=== PATIENT | female | born 1965 | race Hispanic/Latino ===

== ENCOUNTER 2023-03-21 21:55 | Emergency (ER) | payer OTHER, BC ==
[~2023-03-21] VITALS: Ht 152.4 cm; Wt 72.6 kg
[2023-03-21 22:14] VITALS: BP 146/74; PULSE 88; RESP 20
[2023-03-22] MEDS ORDERED: IBUP-2070 PO (00:18)
[2023-03-22] MEDS ORDERED: CYCL10TA16 PO (00:18)
[2023-03-22] MEDS ORDERED: CYCLOBENZAPRINE HCL 10 MG TABLET PO ONE (00:30)
[2023-03-22] MEDS ORDERED: IBUPROFEN 600 MG TABLET PO ONE (00:30)
== END 2023-03-22 01:34 | disposition home or self-care (01) ==
LOC: EDH 21:55
DX: S46.911A Strain of unspecified muscle, fascia and tendon at shoulder and upper arm level, right arm, initial encounter (principal); S29.012A Strain of muscle and tendon of back wall of thorax, initial encounter; E11.9 Type 2 diabetes mellitus without complications; I10 Essential (primary) hypertension; V89.2XXA Person injured in unspecified motor-vehicle accident, traffic, initial encounter; Y93.89 Activity, other specified; Y92.89 Other specified places as the place of occurrence of the external cause; Y99.8 Other external cause status
CPT/HCPCS: 72072; 73030